=== PATIENT | male | born 1975 | race Caucasian/White ===

== ENCOUNTER 2021-08-07 14:29 | Emergency (ER) | payer MEDICAID, SELFPAY ==
[2021-08-07] VITALS (52 sets, daily range): BP systolic 141–171; BP diastolic 86–104; PULSE 104–112; RESP 12–24; TEMP 36.4–37.3; O2SAT 95–98
--- NOTE | 2021-08-07 14:30 | RT.EKG_ITS ---
APPROVED REPORT Exam: Resting ECG Reason for Exam: CHEST PAIN Patient Location: E HR:86 bpm ECG Measurements Heart Rate [address] 143 P 27 QRSd 114 QRS 34 QT 362 T 85 QTc 434 Conclusion Sinus rhythm...normal P axis Probable left atrial enlargement...P >50mS, <-0.10mV V1
--- NOTE | 2021-08-07 15:15 | DI.CT_ITS ---
Exam(s) CT CHEST PE CTA EXAM: CT CHEST PE CTA CLINICAL HISTORY: left pleuritic chest pain tachycardia, sob. TECHNIQUE: Imaging Protocol: CT angiography of the chest was performed using pulmonary embolus jose miguel col. Multi planar reconstructions were performed. CONTRAST MATERIAL: Intravenous: Omnipaque 350 Contrast volume: 100 cc COMPARISON: No exams were available for comparison FINDINGS: CHEST: PULMONARY ARTERIES: There are no obvious intraluminal filling defects to suggest acute pulmonary embo li. LUNGS: A small calcified lateral basal some mild infiltrate lateral basal segment left lower lobe. I s no pleural effusion. No infiltrates on the right side. No pleural effusion. No significant focal findings trachea mainstem bronchi. There are no pleural effusions. MEDIASTINUM: There is no hilar nor mediastinal adenopathy. CARDIAC: Heart size is upper normal. There is no pericardial effusion.Caliber of the thoracic aorta is within normal limits. There is no significant shift of the interventricular septum. PARTIALLY VISUALIZED UPPERMOST ABDOMEN: No obvious findings OSSEOUS: No significant osseous lesions.. IMPRESSION: 1. No evidence of acute pulmonary emboli. No evidence of pulmonary infarction.No pleural effusions. 2. There is some infiltrate the lateral basal segment lower lobe. No infiltrates in right lung no in trathoracic adenopathy RADIATION DOSE DELIVERED: 623.91mGy.cm Total DLP DATA REPOSITORY: All CT scans at this facility are submitted to the National Radiology Data Registry (NRDR) Dose Index Registry (DIR) with the [employer] ([employer]). RADIATION OPTIMIZATION: All CT scans at this facility use at least one of these dose optimization te chniques: automated exposure control; mA and/or kV adjustment per patient size (includes targeted exa ms where dose is matched to clinical indication); or iterative reconstruction.
--- NOTE | 2021-08-07 15:22 | W.ED.GENAD ---
Discharge Plan Disposition Patient Disposition: HOME Condition: Improving Discharge Details Chief Complaint: Chest Pain Clinical Impression: Chest pain Primary Care Provider: Claire Barron ED Provider: Ben Daugherty Home Meds and New Rx's Prescriptions: No Action lisinopril 10 mg Tablet 10 mg PO HS 0RF levothyroxine 175 mcg Tablet 175 mcg PO DAILY AM 0RF bupropion HCl 150 mg Tablet Extended Release 24 Hr 150 mg PO DAILY AM 0RF Discharge Instructions Instructions: Chest Pain (ED) Additional Instructions: Please return to the emergency department if you develop any respiratory symptoms such as cough, fevers chills, worsening chest pain or shortness of breath. Please see my your primary care physician. Continue take your medications as prescribed. Medical Decision Making 45-year-old male history of hypertension presents with pleuritic left-sided chest pain for the past 2 days, sharp pain worse with deep breath, denies history of coronary disease or thromboembolic disease, no peripheral edema, no tachypnea lungs clear bilaterally, mild tachycardia on arrival consider incomplete RBBB on EKG, nonischemic, must consider pleurisy versus PE versus pneumothorax versus atypical ACS versus gastritis versus pancreatitis versus less likely cholecystitis given no right upper quadrant pain nausea or vomiting, patient is afebrile however does appear slightly pale and fatigued, must consider viral syndrome such as influenza or COVID. Screening labs imaging fluids GI cocktail close reassessment disposition pending results. 18: 13 patient resting comfortably no acute distress color screen improved after fluids, 18: 13 patient resting comfortably no acute distress, color is greatly improved, symptomatology is resolved after GI cocktail; no evidence of PE, incidental possible consolidation left lower lobe however could be atelectasis, patient is afebrile nontoxic no productive cough no white count. Given strict return precautions for any signs or symptoms of pneumonia. Patient follows up with his primary care doctor in the coming weeks. Feels comfortable going home will return for any worsening symptoms HPI General Date/Time Provider Initiated Documentation: 08/07/21 15:10. HPI Narrative: 45-year-old male history of hypertension, presents with sharp chest pain with deep breath left-sided left lower chest for the past 2 days, endorses symptoms began after eating [employer] food, does endorse that some of the symptomatology goes towards his back, denies nausea vomiting abdominal pain diarrhea or other systemic signs of illness. Denies history of coronary artery disease stents open heart surgery or thromboembolic disease Related Data Home Medications Medication Instructions Recorded Confirmed bupropion HCl 150 mg 24 hr tablet, 150 mg PO DAILY AM 08/07/21 08/07/21 extended release levothyroxine 175 mcg tablet 175 mcg PO DAILY AM 08/07/21 08/07/21 lisinopril 10 mg tablet 10 mg PO HS 08/07/21 08/07/21 Allergies Allergy/AdvReac Type Severity Reaction Status Date / Time Penicillins AdvReac Unverified 08/07/21 15:15 General Stated Complaint: Chest Pain MARIA ELENA: 2 Review of Systems Narrative: Review of Systems Constitutional: negative Eyes: negative ENT: negative Cardiovascular: negative Respiratory: Pleuritic sharp chest pain Gastrointestinal: negative : negative Musculoskeletal: negative Skin: negative Neurologic: negative Psych: negative PFSH All Active Problems (Updated 08/07/21 @ 18:14 by Ben Daugherty MD) Chest pain (Acute) Social History Smoking/Tobacco Use Status: Never Smoking risk assessment performed?: Yes Drug use: Never Do you feel safe at home: Yes Do you feel safe in your relationship?: Yes Exam Narrative Exam Narrative: Physical Examination General: alert, awake, cooperative, appears mildly uncomfortable HEENT: normocephalic, atraumatic; PERRL, EOM intact, conjunctiva normal; no nasal discharge; moist mucous membranes, oral and pharyngeal mucosa normal, tolerating secretions Neck: supple, trachea midline; full ROM Chest: normal to inspection Respiratory: normal respiratory effort, speaking in full sentences, clear to auscultation, no wheezing, rales or rhonchi Cardiac: Tachycardia, regular rhythm, S1S2 intact, no murmurs rubs or gallops GI: abdomen soft, non-tender, non-distended; no palpable mass or hepatosplenomegaly Skin: Slightly pale appearing Neuro: AAOx3, normal speech, moving all extremities Extremities: No peripheral edema Psych: Appropriate mood and affect Course Vital Signs Vital signs: Vital Signs Temperature 36.4 C L 08/07/21 14:37 Pulse 105 H 08/07/21 14:37 Respiratory Rate 18 08/07/21 14:37 Blood Pressure 149/98 H 08/07/21 14:37 Pulse Oximetry 98 08/07/21 14:37 Temperature 36.4 C L 08/07/21 14:37 Temperature Source Temporal Artery Scan 08/07/21 14:37 Pulse 105 H 08/07/21 14:37 Respiratory Rate 18 08/07/21 15:09 Respiratory Effort 08/07/21 15:09 Respiratory Depth Normal 08/07/21 15:09 Blood Pressure 149/98 H 08/07/21 14:37 Blood Pressure Position Sitting 08/07/21 14:37 Pulse Oximetry 98 08/07/21 14:37 Oxygen Delivery Method Room Air 08/07/21 14:37 Oxygen Flow Rate 0 08/07/21 14:37 Pain Level 0 08/07/21 14:37
[2021-08-07 15:31] LABS: Abs Immature Grans 0.04 10^3/uL (0.0-0.06); Absolute Basophil Count 0.04 10^3/uL (0.0-0.2); Absolute Eosinophil Count 0.22 10^3/uL (0.0-0.7); Absolute Lymphocyte Count 2.05 10^3/uL (1.2-3.4); Absolute Neutrophil Count 5.67 10^3/uL (1.2-6.7); Basophils % 0.4; Eosinophils % 2.5; HCT 49.3 % (40.0-50.0); HGB 15.5 g/dL (13.5-17.5); Immature Grans % 0.4; MCH 27.4 pg (27.0-33.0); MCHC 31.4 % (32.0-36.0); MCV 87 fL (80-95); MPV 10.1 fL (8.0-11.0); Monocytes % 10.1; Neutrophils % 63.6; Platelet Count 316 10^3/uL (130-400); RBC 5.66 10^6/uL (4.36-5.78); RDW 12.9 % (11.8-14.1); RDW-SD 41.1 fL; WBC 8.92 10^3/uL (4.4-10.8)
[2021-08-07] MEDS: Lidocaine 2% Viscous 15 ML CUP PO (15:37)
[2021-08-07] MEDS: Famotidine 20 MG/2 ML VIAL IVP (15:37)
[2021-08-07] MEDS: Ondansetron 4 MG/2 ML VIAL IVP (15:38)
[2021-08-07] MEDS: Normal Saline 500 ML 1000 ML IV (15:38)
[2021-08-07] MEDS: Mylanta Suspension 30 ML CUP PO (15:38)
[2021-08-07 15:42] LABS: INR 0.9 (0.9-1.1); PTT Activated 27.2 sec (21.0-27.5); Prothrombin Time 9.5 sec (9.3-11.0)
[2021-08-07 15:48] LABS: ALT 84 U/L (16-63); AST 33 U/L (15-37); Albumin 4.2 g/dL (3.4-5.0); Alkaline Phosphatase 96 U/L (46-116); BUN 12 mg/dL (7-18); Bilirubin, Total 0.5 mg/dL (0.2-1.0); CREATININE 1.2 mg/dL (0.70-1.30); Calcium 9.2 mg/dL (8.5-10.1); Chloride 101 mmol/L (98-107); Glucose 98 mg/dL (74-106); Lipase 108 U/L (73-393); NT-proBNP 11 pg/mL (<300); Potassium 4.2 mmol/L (3.5-5.1); Sodium 138 mmol/L (136-145); Total Protein 7.9 g/dL (6.4-8.2); Troponin I < 50 ng/L (<or=60)
[2021-08-07] MEDS: Omnipaque 350 MG/ML 50 ML BTL IJ ×2 (16:42→16:43)
[2021-08-07 17:05] LABS: COVID-19 PCR Negative (Negative); Influenza A PCR Negative (Negative); Influenza B PCR Negative (Negative); RSV PCR Negative (Negative)
[2021-08-07 17:28] LABS: Source Nasopharynx
== END 2021-08-07 19:00 | disposition home or self-care (01) ==
PROVIDERS: Emergency Provider Emergency Medicine; PCP Family Medicine
DX: R07.9 Chest pain, unspecified (principal); R07.1 Chest pain on breathing; R06.02 Shortness of breath; R00.0 Tachycardia, unspecified; Z20.822 Contact with and (suspected) exposure to COVID-19
CPT/HCPCS: 36415; 71275; 80053; 83690; 87637; 93005; 96361; 96374; 96375; 99284; 99285; 83880; 84484; 85025; 85610; 85730; 93010; J2405; Q9967

== ENCOUNTER 2022-05-23 16:31 | Emergency (ER) | payer MEDICAID, SELFPAY ==
[2022-05-23] VITALS (10 sets, daily range): BP systolic 122–156; BP diastolic 75–90; PULSE 71–86; RESP 16; TEMP 36.9; O2SAT 95–99
--- NOTE | 2022-05-23 16:34 | ED.GENADUL_ITS ---
Discharge Plan Disposition Patient Disposition: Home Discharge Details Clinical Impression: Fall due to slipping on ice or snow, Acute neck pain Primary Care Provider: Claire Barron ED Provider: Rogelio Miller Home Meds and New Rx's Prescriptions: No Action lisinopril 10 mg Tablet 10 mg PO HS levothyroxine 175 mcg Tablet 175 mcg PO DAILY AM bupropion HCl 150 mg Tablet Extended Release 24 Hr 150 mg PO DAILY AM Discharge Instructions Additional Instructions: You were seen in the emergency department for your history of falling. You are receiving a patch with some numbing medicine. Please also use hot compresses. You may take 1000 mg of acetaminophen (Tylenol) every 8 hours as needed for pain. As we discussed, if you become nauseous and started vomiting or if you have any other concerns please return to the emergency department. Otherwise please follow-up with your primary care provider later this week. Discharge Data Discharge Date/Time-TO BE ENTERED AT DEPARTURE: 05/23/22 17:22 Medical Decision Making This is a quite well-appearing normothermic and not tachycardic 46-year-old male with history of falling and neck and left flank discomfort. His primary survey is intact. He has a reassuring shock index. On secondary survey patient had some mild right-sided neck tenderness. Given that he had no direct trauma to his neck I was not concerned for cervical arterial dissection so I did not feel that the patient required a CTA to assess for dissection. No head strike no loss of dizziness nor anticoagulation so no indication for CT head. Furthermore he had no hemotympanum bilaterally nor any ramírez signs to suggest intracranial hemorrhage. No indication for CT cervical spine as patient nexus negative. Patient has a soft nontender abdomen with no signs of any trauma. Given his reassuring vital signs I did not feel he required a CT scan given his limited mechanism. Equal breath sounds and no hypoxia so I no concerned for pneumothorax. We will treat pain orally with acetaminophen and ibuprofen in addition to Lidoderm patch. Will advise outpatient PMD follow-up and hot compresses for pain. We will pursue an empiric trial of expectant outpatient management and advise ED return if patient becomes nauseous and begins vomiting or if his pain worsens. HPI General Date/Time Provider Initiated Documentation: 05/23/22 16:34 . HPI Narrative: This is a 46-year-old male arriving via private vehicle in the setting of neck pain and left-sided lower abdominal pain status post fall 2 nights ago. Patient reports that he was carrying some groceries and walking on the ice. He inadvertently lost his balance and slipped. He fell onto his side. He did not hit his head nor lose consciousness. He did not strike his neck. He has had a pain in the right side of his neck. He has not been nauseous nor has he been vomiting. He does not feel short of breath. He is not anticoagulated. He has been ambulatory since his fall. He attempted treatments last night with aspirin which did not improve his symptoms. Related Data Home Medications Medication Instructions Recorded Confirmed bupropion HCl 150 mg 24 hr tablet, 150 mg PO DAILY AM 08/07/21 05/23/22 extended release levothyroxine 175 mcg tablet 175 mcg PO DAILY AM 08/07/21 05/23/22 lisinopril 10 mg tablet 10 mg PO HS 08/07/21 05/23/22 Allergies Allergy/AdvReac Type Severity Reaction Status Date / Time Penicillins AdvReac Unverified 05/23/22 16:46 General MARIA ELENA: 2 PFSH All Active Problems (Updated 05/23/22 @ 16:54 by Rogelio Miller MD) Fall due to slipping on ice or snow (Acute) Acute neck pain (Acute) Social History Smoking/Tobacco Use Status: Never Smoking risk assessment performed?: Yes Drug use: Never Do you feel safe at home: Yes Do you feel safe in your relationship?: Yes Exam Narrative Exam Narrative: General: Well-appearing in no acute distress speaking in complete sentences. Head: Normocephalic, atraumatic Ear, nose, mouth, throat: Grossly normal inspection. Normal voice, handling secretions normally. No hemotympanum bilaterally. No septal hematoma. Neck: Trachea midline. Right-sided lateral neck pain. No bruits. No midline cervical tenderness. Cardiovascular: Well-perfused distal extremities. Respiratory: Nonlabored respiration. Equal breath sounds. Gastrointestinal: Nondistended abdomen. Soft nontender. No ecchymoses. No rebound or guarding. Musculoskeletal: No edema. Moving all 4 extremities spontaneously. No tenderness on palpation of bilateral upper and lower extremities. Skin: Normal for age and race, grossly normal temperature and turgor. No acute rash. Neurologic: Alert and appropriate, no apparent acute deficits. Psychiatric: Mood and manner are appropriate. Grooming and personal hygiene are appropriate.
[2022-05-23] MEDS: Acetaminophen 500 MG TAB 1000 MG PO (17:10)
[2022-05-23] MEDS: Lidocaine 5% Patch 1 PATCH TP (17:12)
[2022-05-23] MEDS: Ibuprofen 400 MG TAB PO (17:12)
== END 2022-05-23 17:22 | disposition home or self-care (01) ==
LOC: ER 17:06
PROVIDERS: Emergency Provider Emergency Medicine; PCP Family Medicine
DX: G89.11 Acute pain due to trauma (principal); M54.2 Cervicalgia; R10.30 Lower abdominal pain, unspecified; W00.0XXA Fall on same level due to ice and snow, initial encounter
CPT/HCPCS: 99283; 99284

== ENCOUNTER 2022-09-15 14:14 | Outpatient (CLI) | payer MEDICAID, SELFPAY ==
--- NOTE | 2022-09-15 | DI.RAD_ITS ---
Exam(s) XR KNEE LT 3V AP,LAT,ELICIA EXAM: XR KNEE LT 3V AP,LAT,ELICIA CLINICAL HISTORY: ACUTE KNEE PAIN, ? UNDERLYING MENISCUS INJURY,? BONY ABNORMALITY,M25.562. TECHNIQUE: 2D digital imaging was performed. COMPARISON: No exams were available for comparison FINDINGS: 3 views No evidence of acute fracture nor obvious joint effusion. No joint space narrowing. No osseous lesi ons. Bone density normal. IMPRESSION: No significant osseous findings in knee. No obvious joint effusion. DATA REPOSITORY: RADIATION DOSE DELIVERED:
== END 2023-01-19 16:07 ==
LOC: DI 14:18
PROVIDERS: PCP Family Medicine; Visit Provider Physician Assistant Medical
DX: M25.562 Pain in left knee (principal)
CPT/HCPCS: 73562